=== PATIENT | male | born 1995 | race Native Hawaiian/Other Pacific Islander ===

== ENCOUNTER 2024-03-01 12:24 | Emergency (ER) | payer MEDICAID, SELFPAY ==
[~2024-03-01] VITALS: Ht 170.2 cm; Wt 63.6 kg
[~2024-03-01 12:24] MED LIST: NO MEDS
[2024-03-01 12:26] VITALS: BP 142/68; PULSE 73; RESP 18; TEMP 99.4; O2SAT 96
[2024-03-01] MEDS: BACITRACIN 28 GM OINTMENT TP ONE (15:20)
[2024-03-01] MEDS: PERTUSS(ACELL),DIPH,TET/PF 0.5 ML SYRINGE [ADULT] IM. ONE (15:20)
== END 2024-03-01 16:22 | disposition home or self-care (01) ==
LOC: EMS 12:24
DX: S21.152A Open bite of left front wall of thorax without penetration into thoracic cavity, initial encounter (principal); Z88.0 Allergy status to penicillin; Y04.1XXA Assault by human bite, initial encounter; Y93.89 Activity, other specified; Y92.89 Other specified places as the place of occurrence of the external cause; Y99.8 Other external cause status
CPT/HCPCS: 90471; 90715; 99283

== ENCOUNTER 2024-03-20 00:20 | Emergency (ER) | payer MEDICAID, OTHER ==
[~2024-03-20] VITALS: Ht 170.2 cm; Wt 65.9 kg
[2024-03-20 02:07] VITALS: BP 117/73; PULSE 74; RESP 18; TEMP 98.3; O2SAT 96
[2024-03-20] MEDS: ACETAMINOPHEN 325 MG TABLET PO ONE (02:18)
[2024-03-20] MEDS: IBUPROFEN 400 MG TABLET PO ONE (02:19)
== END 2024-03-20 03:00 | disposition home or self-care (01) ==
LOC: EMS 00:20
DX: S60.222A Contusion of left hand, initial encounter (principal); Z88.0 Allergy status to penicillin; W22.8XXA Striking against or struck by other objects, initial encounter; Y93.89 Activity, other specified; Y92.89 Other specified places as the place of occurrence of the external cause; Y99.0 Civilian activity done for income or pay
CPT/HCPCS: 99283